=== PATIENT | male | born 1985 | race Caucasian/White ===

== ENCOUNTER 2018-10-04 20:23 | Emergency (ER) | payer BC ==
[2018-10-04] MEDS: IBUPROFEN 600 MG TAB PO (21:09)
== END 2018-10-04 21:18 | disposition home or self-care (01) ==
LOC: E/R 20:23
DX: S33.5XXA Sprain of ligaments of lumbar spine, initial encounter (principal); S23.9XXA Sprain of unspecified parts of thorax, initial encounter; V43.52XA Car driver injured in collision with other type car in traffic accident, initial encounter
CPT/HCPCS: 99282